=== PATIENT | male | born 1990 | race African-American/Black ===

== ENCOUNTER 2018-10-30 18:13 | Emergency (ER) | payer SELFPAY ==
[~2018-10-30] VITALS: Ht 172.7 cm; Wt 65.0 kg
[2018-10-30 18:43] VITALS: BP 139/60
== END 2018-10-30 19:45 | disposition left against medical advice (07) ==
LOC: ER 18:13
DX: R51 Headache (principal); Z53.21 Procedure and treatment not carried out due to patient leaving prior to being seen by health care provider